=== PATIENT | female | born 1980 ===

== ENCOUNTER 2016-12-24 16:40 | Emergency (ER) | payer BC ==
--- NOTE | 2016-12-24 16:53 | UC ---
Cardiac HPI - History of Current Complaint Stated Complaint: DIFFICULTY BREATHING Time Seen by Provider: 12/24/16 16:46 Hx Obtained From: Patient Onset/Duration: Sudden Onset - lower mid-sternal chest pain, Lasting Hours - 8 hours., Still Present Initial Severity: Mild Current Severity: Mild Chest Pain Location: Lower Sternal Character: Tightness Aggravating: Deep Breaths Alleviating: Nothing Associated Signs & Symptoms: Positive: Chest Pain, Headaches - all over, SOB - with wheezing, Cough. Negative: Anxiety, Fever, Calf Pain/Swelling Related History: Similar Episode/Dx as - bronchitis/ walking pneumonia - Risk Factors Pulmonary Embolism Risk Factors: Negative Cardiac Risk Factors: Negative Atrial Fibrillation: Negative TAD Risk Factors: Negative - Allergy/Home Medications Allergies/Adverse Reactions: Allergies Allergy/AdvReac Type Severity Reaction Status Date / Time Latex AdvReac Mild Rash Verified 12/24/16 16:57 Home Medications: Home Medications Fexofenadine (NF) [Brittney (NF)] 60 mg PO DAILY 12/24/16 [History Confirmed 03/05] Phentermine HCl [Lomaira] 15 mg PO DAILY 12/24/16 [History Confirmed 12/24/16] PMH/Surg Hx/FS Hx/Imm Hx Previously Healthy: Yes Cardiovascular History Of: Denies: Cardiac Disorders, Hypertension Respiratory History Of: Denies: Asthma - Surgical History Surgical History: None - Family History Known Family History: Positive: Hypertension Negative: Cardiac Disease, Diabetes - Social History Occupation: Employed Full-time Lives: With Family Substance Use Type: None Smoking Status (MU): Never Smoked Tobacco Have You Smoked in the Last Year: No Review of Systems Respiratory: Shortness Of Breath, Cough Cardiovascular: Chest Pain All Other Systems Reviewed And Are Negative: Yes Physical Exam Triage Information Reviewed: Yes Appearance: Well-Nourished, Ill-Appearing - mild, Pain Distress - with coughing Vital Signs Reviewed: Yes Eyes: Positive: Conjunctiva Clear ENT: Positive: Pharynx normal, TMs normal Dental Exam: Normal Neck: Positive: Supple Respiratory: Positive: Wheezing - diffuse expiratory. Negative: Chest non- tender - tender over the anterior sternal chest wall. Cardiovascular Exam: Normal Abdominal Exam: Normal Abdomen Description: Positive: No Organomegaly, Soft Musculoskeletal Exam: Normal Neurological Exam: Normal Psychological Exam: Normal Skin Exam: Normal - Differential Diagnoses - Chest Pain Differential Diagnosis/HQI/PQRI: Chest Wall, GI Disease, Lower Respiratory Infection - Clinical Impression Provider Diagnoses: Pneumonia. Acute bronchospasm. Chest wall pain Discharge - Discharge Plan Condition: Stable Disposition: HOME Prescriptions: Clarithromycin TAB* [Biaxin 500 MG TAB*] 500 mg PO BID #20 tab predniSONE TAB* [Deltasone TAB*] 20 mg PO DAILY #18 tab Patient Education Materials: Community Acquired Pneumonia (ED), Clarithromycin (By mouth), Bronchospasm (ED), Prednisone (By mouth), How to Use a Metered-Dose Inhaler (ED) Referrals: Lacho Bullock MD [Primary Care Provider] - (10 days to recheck the breathing and the blood pressure. Repeat chest xray in 1 month)
[2016-12-24 16:59] VITALS: BP 145/95
[2016-12-24] MEDS ORDERED: Ipratropium 0.5MG/2.5ML NEB* 0.5 MG/2.5 ML NEB.SOLN INH ONE (17:10)
[2016-12-24] MEDS ORDERED: Albuterol 2.5 MG/3 ML NEB.SOL* (0.083%) INH ONE (17:10)
[2016-12-24] MEDS ORDERED: Albuterol HFA INHALER* 8 gm MDI INH ONE (18:08)
[2016-12-24] MEDS ORDERED: Clarithromycin TAB* 500 MG PO ONE (18:08)
[2016-12-24] MEDS ORDERED: predniSONE TAB* 20 MG PO ONE (18:08)
--- NOTE | 2016-12-24 18:21 | RAD ---
INDICATION: Cough and wheezing COMPARISON: None TECHNIQUE: PA and lateral views of the chest were obtained. FINDINGS: The heart and mediastinum are normal in size and contour. There is a mild degree of peribronchial cuffing depicted best on the lateral view chest x-ray. Otherwise the lungs are grossly clear. There is no evidence of large pleural effusion. Visualized bones are normal for the patient's age. There is no radiographic evidence of free air beneath the diaphragm IMPRESSION: MILD PERIBRONCHIAL CUFFING COULD BE SEEN IN THE SETTING OF BRONCHITIS/INFLAMMATORY LUNG DISEASE.
== END 2016-12-24 18:46 | disposition home or self-care (01) ==
LOC: UCCORT 16:40
DX: J18.9 Pneumonia, unspecified organism (principal); J98.01 Acute bronchospasm; R07.89 Other chest pain; Z91.040 Latex allergy status
CPT/HCPCS: 71020; 93005; 99213; A9270-GY; G0463; J7512; J7644

== ENCOUNTER 2018-12-28 12:46 | Emergency (ER) | payer BC ==
--- OUTSIDE RECORDS SUMMARY | 2018-12-28 13:02 | XMS REPORT | Continuity of Care Document ---
:1980 External Reference #:[id number] Author Name Silverio De Anda Care Team Providers Name Role Phone Clary Rangel PA Primary Care Physician Unavailable Payers Date Identification Numbers Payment Provider Subscriber Effective: 2015 Policy Number: [id number] [facility] Dot Perera PayID: [id number] [address] [address] [place] [address] Advance Directives Description No Information Available Problems Active Problems Provider Date Obesity Onset: 05/01/2018 Gastroesophageal reflux disease Onset: 09/02/2013 Gynecologic examination Onset: 09/02/2013 Disorder of bone Onset: 09/02/2013 Family History Date Family Member(s) Observation Comments Father HTN,Hyperlipidemia,Stroke Mother HTN,Hyperlipidemia Social History Type Date Description Comments Sex Unknown Marital Status Significant Other Lives With Daughter Pets 2 cats 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 Dominance Right-handed ETOH Use Negative For Drinks Alcoholic Beverages Occasionally Tobacco Use Reviewed: Patient has never smoked 09/10/14 Recreational Drug Use Never Used Drugs Smoking Status Reviewed: Patient has never smoked 09/10/14 Tattoo/Piercing Pierced ears Tattoo/Piercing 11/22/2016 Tattoo back,right foot,left foot Allergies, Adverse Reactions, Alerts Description No Information Medications Active Medications SIG Qnty Indications Ordering Date Provider Meclizine HCL one pill twice 20tabs H81.10 Lacho 12/05/2018 12.5mg Tablets daily as needed MD Ara for vertigo Ec-Naproxen one pill twice 60tabs M77.01 Lacho 12/05/[address] a day with food MD Ara Phendimetrazine Tartrate one tablet 30tabs Lacho 04/17/2018 35mg twice a day 30 MD Ara Tablets to 60 minutes before meals My 09/08 Take One Tablet 63tabs Z92.0 [place] 10/30/2017 1-20mg-mcg Tablets By Mouth Every MD Ara Day History Medications Flaxseed Oil 2 daily at 90caps Lacho 04/17/2018 - 1000mg supper MD Ara 12/05/2018 Capsules Xyzal Allergy 24HR 2 x per day @ 10 Lacho 04/17/2018 - & 3pm MD Ara 12/05/2018 5mg Tablets Naproxen one pill twice a 20tabs M79.604 Lacho 04/17/2018 - 500mg day with food MD Ara 12/05/[address] Azithromycin 2 tablets day 6tabs J06.9 [place] 12/19/2017 - 250mg one then one MD Ara 12/31/2017 Tablets tablet day2 thru day 5 Azithromycin 2 tablets day 6tabs R05 Lacho 12/19/2017 - 250mg one then one MD Ara 12/31/2017 Tablets tablet day2 thru day 5 Benzonatate one three times 30caps R05 [place] 12/19/2017 - 200mg a day as needed MD Ara 12/31/2017 Capsules cough Prednisone day 1and day 2 9tabs L30.9 [place] 10/30/2017 - 20mg two tablets MD Ara 12/19/2017 Tablets qd,then day3,4,5 one qd,the one half tabletday 6,7,8,9 Norethindrone 1 by mouth every 63tabs Z92.0 Lacho 10/30/2017 - Acetate/Ethinyl day MD Ara 12/05/2018 Estradiol 1-20mg-mcg Tablets Azithromycin 2 tablets day 6tabs J20.9 [place] 07/25/2017 - 250mg one then one MD Ara 10/30/2017 Tablets tablet day2 thru day 5 Saxenda 0.6mg injected 45units Lacho 04/12/2017 - 18mg/3ML dailyweek MD Ara 07/25/2017 Solution Pen-Inject one,week 2, 1.2mg daily,week-3 1.8mg daily,week-4 2.4mg daily week 5,3mg daily Sulfamethoxazole/Tri 1 by mouth twice 20tabs L03.90 Lacho 12/11/2016 - methoprim DS a day MD Ara 01/05/2017 800-160mg Tablets Phentermine HCL one daily as 30caps R79.9 Lacho 12/06/2016 - 15mg directed MD Ara 04/12/2017 Capsules Mupirocin Calcium apply to 30units S80.211 Lacho 11/22/2016 - 2% affected area A MD Ara 12/06/2016 Cream three times daily for 5 days Azithromycin 2 tablets day 6tabs 466.0 Lacho 11/17/2013 - 250mg one then one MD Ara 03/16/2014 Tablets tablet day2 thru day 5 Naproxen one bid with 60tabs 724.70 Lacho 09/11/2013 - 500mg food MD Ara 03/16/2014 Tablets Zantac 1 poqhs 30tabs 530.81 Lacho 08/28/2013 - 300mg Tablets MD Ara 09/10/2014 Seasonique take daily as Lacho - lali Bullock MD 04/25/2018 0.15-0.03&0.01mg Tablets Immunizations CPT Code Status Date Vaccine Lot # [id number] Given 09/13/2007 Tdap - Tetanus/Diptheria/Acellular Pertussis [id number] Refused 05/23/2018 Influenza Virus Vaccine, Quadrivalent, Split, Im Use 6-35mo Vital Signs Date Vital Result Comment 12/05/2018 3:55pm Weight 179.00 lb BP Systolic Sitting 112 mmHg BP Diastolic Sitting 70 mmHg 05/23/2018 2:03pm Height 66 inches Weight 198.00 lb BP Systolic 110 mmHg BP Diastolic 40 mmHg Body Temperature 98.8 F BMI (Body Mass Index) 32.0 kg/m2 04/17/2018 3:42pm BP Systolic 110 mmHg BP Diastolic 50 mmHg 03/12/2018 8:43am Weight 200.00 lb BP Systolic 110 mmHg BP Diastolic 70 mmHg 12/31/2017 2:57pm Weight 206.00 lb BP Systolic 120 mmHg BP Diastolic 70 mmHg 12/19/2017 12:58pm Weight 205.00 lb BP Systolic 118 mmHg BP Diastolic 54 mmHg 10/30/2017 10:15am Weight 203.00 lb BP Systolic 118 mmHg BP Diastolic 74 mmHg 07/25/2017 3:21pm Weight 195.00 lb Heart Rate 99 /min Body Temperature 100.2 F 04/12/2017 2:40pm Height 66 inches Weight 188.00 lb BP Systolic 118 mmHg BP Diastolic 70 mmHg Respiratory Rate 12 /min Body Temperature 98.8 F BMI (Body Mass Index) 30.3 kg/m2 02/06/2017 1:15pm Height 66 inches Weight 193.00 lb BMI (Body Mass Index) 31.1 kg/m2 01/05/2017 10:14am Weight 189.38 lb Heart Rate 82 /min BP Systolic 120 mmHg BP Diastolic 70 mmHg 12/11/2016 3:09pm Weight 194.00 lb BP Systolic 120 mmHg BP Diastolic 78 mmHg 12/06/2016 1:54pm Weight 194.00 lb BP Systolic 120 mmHg BP Diastolic 78 mmHg 11/22/2016 1:16pm Height 66 inches Weight 195.00 lb BP Systolic 120 mmHg BP Diastolic 60 mmHg BMI (Body Mass Index) 31.5 kg/m2 08/23/2015 8:42am Weight 180.00 lb 03/16/2014 10:18am Weight 160.00 lb BP Systolic 120 mmHg BP Diastolic 70 mmHg Body Temperature 99.2 F 11/17/2013 3:49pm Weight 159.00 lb Body Temperature 98.6 F 10/14/2013 2:53pm Weight 157.00 lb BP Systolic 110 mmHg BP Diastolic 60 mmHg 09/11/2013 11:04am Weight 158.00 lb BP Systolic 112 mmHg BP Diastolic 78 mmHg 08/28/2013 2:52pm Weight 155.00 lb BP Systolic 112 mmHg BP Diastolic 68 mmHg Body Temperature 97.6 F Results Test Date Facility Test Result H/L Range Note Laboratory test 05/23/2018 N2N/CCD Import [facility] Pap Laboratory 1 finding [place] <See Note> Laboratory test 03/14/2018 N2N/CCD Import Hepatitis A Negative 2 finding Antibody -IgM Hepatitis B Core Antibody-IgM Negative 3 Hepatitis B Surface Antigen Negative Hepatitis C Antibody 0.1 s/corat 0-0.9 4 Treponema Antibody [place] Negative Laboratory test 03/12/2018 N2N/CCD Import Trichomonas Negative 5, 6 finding vaginalis Rna GC/Chlamydia 03/12/2018 N2N/CCD Import Chlamydia Negative Amplified Rna trachomatis Rna Neisseria gonorrhoeae (GC) Rna Negative Laboratory test 07/25/2017 N2N/CCD Import Influenza A Positive Abnormal 7 finding Molecular Influenza B Molecular Negative Laboratory test 07/25/2017 [facility] Import Rapid Influenza A See Result Below 8, 9 finding & B Antigen Laboratory test 04/12/2017 [facility] Import [facility] Pap [facility] 10 finding <See Note> Laboratory test 11/23/2016 [employer] [facility] Import Hemoglobin A1c 5.1 % 11 finding TSH (Thyroid Stimulating Horm) 2.82 mcIU/mL 0.34-5.6 Vitamin D Total 25(Oh) 23.9 ng/mL Low 30-50 Basic Metabolic Panel 11/23/2016 [employer] Import Anion Gap 6 mmol/L 2-11 BUN/Creatinine Ratio 20.5 1 High 8-20 Blood Urea Nitrogen 17 mg/dL 6-24 Calcium 9.0 mg/dL 8.6-10.3 Chloride 107 mmol/L 101-111 Co2 Carbon Dioxide 24 mmol/L 22-32 Creatinine 0.83 mg/dL 0.51-0.95 Egfr 101.2 1 12 Egfr Non- 78.7 1 Glucose 78 mg/dL 70-100 Potassium 4.6 mmol/L 3.5-5 Sodium 137 mmol/L 133-145 CBC Auto Diff 11/23/2016 [employer] Import Abs Basophils 0.1 10^3/uL 0-0.2 Abs Eosinophils 0.3 10^3/uL 0-0.6 Abs Lymphocytes 1.7 10^3/uL 1-4.8 Abs Monocytes 0.5 10^3/uL 0-0.8 Abs Neutrophils 4.9 10^3/uL 1.5-7.7 Abs Nucleated RBC 0 10^3/uL Basophil % 1.4 % 0-2 Eosinophil % 4.3 % 0-6 Granulocyte % 64.8 % 38-83 Hematocrit 39 % 35-47 Hemoglobin 12.9 g/dL 12-16 Lymphocyte % 22.5 % Low 25-47 Mean Corpuscular HGB Conc 33 g/dL 31-36 Mean Corpuscular Hemoglobin 28 pg 27-31 Mean Corpuscular Volume 85 fL 80-97 Mean Platelet Volume 11 um3 High 7.4-10.4 Monocyte % 7.0 % 1-9 Nucleated Red Blood Cells % 0.1 1 Platelet Count 183 10^3/uL 150-450 Red Blood Count 4.62 10^6/uL 4-5.4 Red Cell Distribution Width 13 % 10.5-15 White Blood Count 7.6 10^3/uL 3.5-10.8 Liver Function Panel 11/23/2016 N2N/CCD Import Albumin 4.1 g/dL 3.2-5.2 Albumin/Globulin Ratio 1.4 1 1-3 Alkaline Phosphatase 39 U/L 34-104 Alt 9 U/L 7-52 Ast 15 U/L 13-39 Direct Bilirubin 0.10 mg/dL 0.03-0.18 Globulin 3.0 g/dL 2-4 Indirect Bilirubin 0.4 mg/dL 0.3-1 Total Bilirubin 0.50 mg/dL 0.2-1 Total Protein 7.1 g/dL 6.4-8.9 Imaging finding 08/28/2013 N2N/CCD Import xray coccyx <pending> 1 [facility]. 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 Reported: 05/27/2018 07:16 Electronically Signed Out By Zahida MALHOTRA(ASCP) lgs ICD code: Z00.01 CPT code: A: OS687FTH 2 Z20.2 3 Performed at: - [facility] [address] [id number] Supervisor Counseling And Guidance: Omari Kline MD, Phone: [phone] Performed at: - [facility] [address] [id number] Supervisor Counseling And Guidance: Homa Hernandes MD, Phone: [phone] INFCE Result Units: s/co ratio Negative: < 0.8 Indeterminate: 0.8 - 0.9 Positive: > 0.9 The CDC recommends that a positive HCV antibody result be followed up with a HCV Nucleic Acid Amplification test (467577). 5 [id number] 6 [id number] GC/Chlamydia Source?: Endocervical Trichomonas Source: Endocervical 7 Cna Gna: [id number] 9 SEE RESULT BELOW Name: DOT PERERA : [address]: Clary GEORGE Acct: [id number] Unit: [id number] AGE: 36 Location: [facility] Re07/25/17 SEX: F Status: REG REF SPEC: [id number] HERMAN: 07/25/17-[address]: Clary GEORGE REQ: [id number] RECD: 07/25/17 STATUS: COMP _ SOURCE: CHARLENE OMALLEYESC: ORDERED: Breonna Hargrove Request COMMENTS: [id number] Procedure Result Reported Site Rapid Influenza A B Request Final 07/25/17- 2107 ML Specimen received for Influenza A/B Molecular testing * ML - MAIN LAB ([facility]) . END OF REPORT * ML=Testing performed at Main Lab DEPARTMENT OF PATHOLOGY, [address] [address] James Patiño M.D. Director [facility] # [id number] 10 [facility] [address] [place] [address] GYNECOLOGIC CYTOLOGY REPORT Accession Number: [id number] Source of Specimen(s): A: [facility] Cervical / Endocervical Pap Smear - One Vial Clinical Diagnosis and History: Date of Last Menstrual Period: 03/10/17 Treatment History: Biopsy Other Clinical Conditions: Last Pap Smear: 04/04 normal Specimen Adequacy SATISFACTORY FOR EVALUATION SCANT/NO ENDOCERVICAL COMPONENT General Categorization NEGATIVE FOR INTRAEPITHELIAL LESION OR MALIGNANCY Interpretation NEGATIVE FOR INTRAEPITHELIAL LESION OR MALIGNANCY Reported: 04/16/2017 Electronically Signed Out By Shahana MALHOTRA(ASCP) [facility] dol 11 Therapeutic target for the treatment of diabetes Mellitus patients is <7% HBA1C, and in selective patients <6.0%.Please refer to [place] [employer] Diabetic care guidelines for further information. 12 Because ethnic data is not always readily available, this report includes an eGFR for both -Americans and non- Americans. The National Kidney Disease Education Program (NKDEP) does not endorse the use of the MDRD equation for patients that are not between the ages of 18 and 70, are , have extremes of body size, muscle mass, or nutritional status, or are non- or non-. According to the National Kidney Foundation, irrespective of diagnosis, the stage of the disease is based on the level of kidney function: Stage Description GFR(mL/min/1.73 m(2)) 1 Kidney damage with normal or decreased GFR 90 2 Kidney damage with mild decrease in GFR 60-89 3 Moderate decrease in GFR 30-59 4 Severe decrease in GFR 15-29 5 Kidney failure <15 (or dialysis) Procedures Date Code Description Status 09/10/2014 94403 Pure Tone Hearing Test, Air Completed 11/17/2013 46524 Noninvasive Ear Or Pulse Oximetry For Oxygen Saturation Completed 11/17/2013 25773 Inhalation [place] For Acute Airway Obstruction Completed W/Nebulizer/Inhaler Encounters Description No Information Available Plan of Treatment Future Appointment(s):12/18/2018 4:15 pm - DORIS Martinez at [facility] - MODESTA Martinez77.01 Medial epicondylitis, right elbowNew Medication:Ec -Naproxen 500 mg - one pill twice a day with foodM72.2 Plantar fascial fwgywfvvgxmrK53.86xA Insect bite of other specified part of neck, initial jlfdlgoZ22.10 Benign paroxysmal vertigo, unspecified earNew Medication: Meclizine HCL 12.5 mg - one pill twice daily as needed for vertigo
--- NOTE | 2018-12-28 13:04 | UC ---
Throat Pain/Nasal Klever HPI - HPI Summary HPI Summary: 38 y/o female presents to the urgent care c/o sinus congestion and pain w/ green nasal discharge for the past week. Pt reports Hx of sinusitis and states she has been taken OTC medication to alleviate symptoms,. However, yesterday congestion worsen and she developed RT ear pain. Today pain is worse 8/10 associated w/ decrease hearing and pressure. She can hear water in her ear Pt also states moderated green PND w/ mild cough. Pt denies fever, SOB, dizziness , chest pain, abdominal pain, N/V/D . - History of Current Complaint Stated Complaint: SINUS, RIGHT EAR CONCERN Time Seen by Provider: 12/28/18 13:03 Hx Obtained From: Patient Hx Last Menstrual Period: 12/01/16 ?: No Onset/Duration: Gradual Onset, Lasting Weeks - 1 week, Still Present, Worse Since - yesterday Severity: Moderate Pain Intensity: 8 - Rt ear pain Pain Scale Used: 0-10 Numeric Cough: None Associated Signs & Symptoms: Positive: Sinus Discomfort, Nasal Discharge - green , Other - RT ear pain and +PND. Negative: Fever - Epiglottits Risk Factors Epiglottis Risk Factors: Negative - Allergies/Home Medications Allergies/Adverse Reactions: Allergies Allergy/AdvReac Type Severity Reaction Status Date / Time latex AdvReac Rash Verified 12/28/18 13:07 Home Medications: Home Medications Norethindrone AC-Eth Estradiol [My 21 1-20 Tablet] 1 tab PO DAILY 12/28/18 [ History] PMH/Surg Hx/FS Hx/Imm Hx Previously Healthy: Yes Other Respiratory History: sinusitis - Surgical History Surgical History: None - Family History Known Family History: Positive: Hypertension Negative: Cardiac Disease, Diabetes - Social History Occupation: Employed Full-time Lives: With Family Alcohol Use: None Substance Use Type: None Smoking Status (MU): Never Smoked Tobacco Have You Smoked in the Last Year: No Review of Systems All Other Systems Reviewed And Are Negative: Yes Constitutional: Positive: Negative Skin: Positive: Negative Eyes: Positive: Negative ENT: Positive: Ear Ache - Rt ear pain, Nasal Discharge - green, Sinus Congestion , Sinus Pain/Tenderness, Other - Moderate PND Respiratory: Positive: Negative Cardiovascular: Positive: Negative Gastrointestinal: Positive: Negative Genitourinary: Positive: Negative Motor: Positive: Negative Neurovascular: Positive: Negative Musculoskeletal: Positive: Negative Neurological: Positive: Negative Psychological: Positive: Negative Is Patient Immunocompromised?: No Physical Exam - Summary Physical Exam Summary: Vital signs: reviewed General: well developed, well nourished female sitting in the examining table w/ o any apparent distress Skin: [place], warm and dry, no evidence of atopic dermatitis, psoriasis, seborrhea. HEENT: -Head: atraumatic, non tender; no scalp dermatitis. -Eyes: sclera and conjunctiva clear, PERRLA, EOMI -Ears: no pre- or postauricular lymphadenopathy or erythema; RT external ear canal clear , Rt TM injected w/ erythema and yellowish discharge, LF external ear canal clear and LF TM WNL. No perforation. -Nose/Face: erythematous and edematous nasal mucosa with yellowish rhinorrhea w / frontal and maxillary sinus tender to palpation. R>L -Mouth/Throat: Mucous membrane moist, posterior pharynx clear, no erythema or exudates. Neck: supple, FROM, nontender, no lymphadenopathy, no meningismus. Chest: Clear to auscultation, normal breath sounds Abd: soft, Bowel sounds active, Nontender. Back: no spinal or CVAT Neuro: A&O x4, GCS 15, no focal neuro deficits, normal behavior for age. Triage Information Reviewed: Yes Throat Pain/Nasal Course/Dx - Course Course Of Treatment: 38 y/o female presents to the urgent care c/o sinus congestion and pain w/ green nasal discharge for the past week. Pt reports Hx of sinusitis and states she has been taken OTC medication to alleviate symptoms,. However, yesterday congestion worsen and she developed RT ear pain. Today pain is worse 8/10 associated w/ decrease hearing and pressure. She can hear water in her ear Pt also states moderated green PND w/ mild cough. Pt denies fever, SOB, dizziness , chest pain, abdominal pain, N/V/D . Hx obtained. Pt w/ RT otitis media and acute bacterial sinusitis on examination. Pt given at the clinic Ibuprofen PO by nurse for otalgia. Pt tolerated well medication and pain decrease. Pt Rx Amoxicillin PO. Pt Rx Amoxicillin PO and flonase nasal spray. Advised to continue w/ Ibuprofen PO for pain. Pt's BP is elevated today advised to decrease salt in diet, monitor BP and f/u with PCP for further management. Discharge instructions explained to Pt. Advised to Return to the clinic or PCP if symptoms do not improve.Pt understood and agreed with plan of care. - Differential Dx/Diagnosis Differential Diagnosis/HQI/PQRI: Influenza, Laryngitis, Otitis Media, Pharyngitis, Sinusitis, Tonsillitis, URI Provider Diagnosis: Acute bacterial sinusitis, Right otitis media, Elevated BP without diagnosis of hypertension Discharge - Sign-Out/Discharge Documenting (check all that apply): Patient Departure - D/C home All imaging exams completed and their final reports reviewed: No Studies - Discharge Plan Condition: Stable Disposition: HOME Prescriptions: Amoxicillin PO (*) [Amoxicillin 875 MG (*)] 875 mg PO BID #20 tab Fluticasone NASAL SPRAY 50MCG* [Flonase NASAL SPRAY 50MCG*] 2 spray BOTH NARES DAILY #1 btl Patient Education Materials: Sinusitis (ED), Ear Infection (ED) Referrals: Lacho Bullock MD [Primary Care Provider] - 3 Days Additional Instructions: 1-Please take the full course of the antibiotic to avoid resistance. Take yogurt w/ probiotics or culturelle to protect your GI system 2-Please take ibuprofen PO q6-8hrs prn as instructed after meals to alleviate pain and swelling. Increase fluid intake, eat well, rest and avoid strenuous exercise 3-If symptoms do not improve or worsen please return to the urgent care or f/u with your PCP in 3 days for further evaluation and treatment. 4- Your BP is elevated today. please decrease salt in your diet, monitor BP and if it continues to be elevated please f/u with your PCP for further management. - Billing Disposition and Condition Condition: STABLE Disposition: Home
[2018-12-28 13:07] VITALS: BP 150/97
[2018-12-28] MEDS ORDERED: Ibuprofen TAB* 400 MG PO ONE (13:16)
== END 2018-12-28 13:40 | disposition home or self-care (01) ==
LOC: UCCORT 12:46
DX: J01.90 Acute sinusitis, unspecified (principal); B96.89 Other specified bacterial agents as the cause of diseases classified elsewhere; H66.91 Otitis media, unspecified, right ear; R03.0 Elevated blood-pressure reading, without diagnosis of hypertension
CPT/HCPCS: 99212; A9270-GY; G0463